=== PATIENT | male | born 1970 | race African-American/Black ===

== ENCOUNTER 2018-02-09 21:31 | Emergency (ER) | payer MEDICAID, OTHER ==
[2018-02-09] MEDS ORDERED: IBUPROFEN 600 MG TABLET PO ONE (23:13)
[2018-02-09] MEDS ORDERED: ACETAMINOPHEN 325 MG TABLET PO ONE (23:13)
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
[2018-02-09] MEDS ORDERED: MORPHINE SULFATE IR 15 MG TABLET PO ONE (23:55)
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
[2018-02-10 00:54] VITALS: BP 100/58
== END 2018-02-10 01:12 | disposition home or self-care (01) ==
LOC: ER 21:31
PROC: 2W3QX1Z Immobilization of Right Lower Leg using Splint (ICD-10-PCS; principal; 2018-02-09)
DX: S82.841A Displaced bimalleolar fracture of right lower leg, initial encounter for closed fracture (principal); M79.671 Pain in right foot; W19.XXXA Unspecified fall, initial encounter
CPT/HCPCS: 99284; 73610; 73630; 29515; J3490 ×2

== ENCOUNTER 2018-02-19 07:58 | Day surgery (SDC) | payer MEDICAID ==
[~2018-02-19 07:58] MED LIST: CEFAZOLIN 2 GM/D5W RTU 2 GM/50 ML RTUPB IV PRN
[2018-02-19 08:44] LABS: HEMATOCRIT 36.8 % (37.9-51.0); HEMOGLOBIN 12.7 g/dL (13.5-17.0); MEAN CORPUSCULAR HEMOGLOBIN 31.1 pg (27.0-33.4); MEAN CORPUSCULAR HGB CONC 34.4 g/dL (32.0-36.0); MEAN CORPUSCULAR VOLUME 90 fl (80-97); PLATELET COUNT 426 10^3/uL (150-450); RED BLOOD COUNT 4.07 10^6/uL (4.35-5.55); RED CELL DISTRIBUTION WIDTH 12.3 % (11.5-14.0); WHITE BLOOD COUNT 13.2 10^3/uL (4.0-10.5)
--- NOTE | 2018-02-19 08:47 | RADIOLOGY REPORT (SQ) ---
EXAM DESCRIPTION: CHEST SINGLE VIEW COMPLETED DATE/TIME: 02/19/2018 8:38 am REASON FOR STUDY: PREOP COMPARISON: 05/01/2015 EXAM PARAMETERS: NUMBER OF VIEWS: One view. TECHNIQUE: Single frontal radiographic view of the chest acquired. RADIATION DOSE: NA LIMITATIONS: None. FINDINGS: LUNGS AND PLEURA: Chronic blunting of the right costophrenic angle. Chronic elevation rig ht diaphragm. No opacities, masses or pneumothorax. No pleural effusion. MEDIASTINUM AND HILAR STRUCTURES: No masses. Contour normal. HEART AND VASCULAR STRUCTURES: Heart normal in size. Normal vasculature. BONES: No acute findings. HARDWARE: None in the chest. OTHER: No other significant finding. IMPRESSION: NO ACUTE RADIOGRAPHIC FINDING IN THE CHEST. TECHNICAL DOCUMENTATION: JOB ID: [id number] [employer]- All Rights Reserved Reading location - IP/workstation name: [email or web address]
[2018-02-19] MEDS ORDERED: CEFAZOLIN 2 GM/D5W RTU 2 GM/50 ML RTUPB IV ONE (09:01)
[2018-02-19 09:05] LABS: ANION GAP 10 (5-19); BLOOD UREA NITROGEN 8 mg/dL (7-20); CALCIUM 9.4 mg/dL (8.4-10.2); CARBON DIOXIDE 27 mmol/L (22-30); CHLORIDE 101 mmol/L (98-107); GLUCOSE 80 mg/dL (75-110); POTASSIUM 3.9 mmol/L (3.6-5.0); SODIUM 137.5 mmol/L (137-145)
[2018-02-19] MEDS ORDERED: SUCCINYLCHOLINE CHLORIDE INJ 200 MG/10 ML VIAL ONE (09:12)
[2018-02-19] MEDS ORDERED: LIDOCAINE 2% INJ-PF (20 MG/ML) 10 ML AMPUL ONE (09:48)
[2018-02-19] MEDS ORDERED: MIDAZOLAM 2 MG/2 ML INJ ONE (09:49)
[2018-02-19] MEDS ORDERED: FENTANYL CITRATE INJ/PF 100 MCG/2 ML AMPUL ONE (09:49)
[2018-02-19] MEDS ORDERED: ONDANSETRON HCL INJ/PF 4 MG/2 ML SDV ONE (09:49)
[2018-02-19] MEDS ORDERED: DEXAMETHASONE SOD PHOSPHATE INJ 4 MG/1 ML VIAL ONE (09:49)
[2018-02-19] MEDS ORDERED: PROPOFOL INJ 200 MG/20 ML VIAL IV ONE (09:49)
[2018-02-19] MEDS ORDERED: ACETAMINOPHEN 1,000 MG/100 ML RTUPB IV ONE (09:50)
[2018-02-19 09:51] LABS: APPEARANCE,URINE CLEAR; BILIRUBIN,URINE NEGATIVE (NEGATIVE); COLOR,URINE YELLOW; GLUCOSE, URINE NEGATIVE (NEGATIVE); KETONES,URINE NEGATIVE (NEGATIVE); LEUKOCYTE ESTERASE,URINE NEGATIVE (NEGATIVE); NITRITE,URINE NEGATIVE (NEGATIVE); PROTEIN,URINE NEGATIVE (NEGATIVE)
[2018-02-19 09:57] LABS: URINE SPECIFIC GRAVITY 1.022
--- NOTE | 2018-02-19 10:03 | EKG REPORT ---
SEVERITY:- OTHERWISE NORMAL ECG - SINUS RHYTHM LOW VOLTAGE IN FRONTAL LEADS : Confirmed by: Cierra Ding MD 19-Feb-2018 10:03:02
[2018-02-19] MEDS ORDERED: ONDANSETRON HCL INJ/PF 4 MG/2 ML SDV IV PRN (11:17)
[2018-02-19] MEDS ORDERED: PROMETHAZINE HCL INJ 25 MG/1 ML VIAL IV PRN ×2 (11:17)
[2018-02-19] MEDS ORDERED: MEPERIDINE HCL/PF INJ 25 MG/1 ML DISP.SYRIN IV PRN (11:17)
[2018-02-19] MEDS ORDERED: FENTANYL CITRATE INJ/PF 100 MCG/2 ML AMPUL IV PRN ×3 (11:17)
[2018-02-19] MEDS ORDERED: MORPHINE SULFATE 10 MG/ML INJ IV PRN (11:17)
[2018-02-19] MEDS ORDERED: DIPHENHYDRAMINE HCL 50 MG/ML VIAL IV PRN (11:17)
--- NOTE | 2018-02-19 11:42 | Operative Report ---
Operative Report DATE OF SURGERY: 02/19/18 PREOPERATIVE DIAGNOSIS: Malunion right bimalleolar ankle fracture OPERATION: Takedown of malunion and open reduction internal fixation of fracture SURGEON: TWAN ROBERTO ANESTHESIA: GA ESTIMATED BLOOD LOSS: 25 PROCEDURE: With the patient supine on the operating table the right lower extremities prepped and draped in a sterile fashion. The limb is elevated for exsanguination and the tourniquet inflated 280 torr. Longitudinal incisions made over the distal fibula and sharp dissection was carried incision down to the fracture. The fracture callus was debrided sharply using a 15 blade. The fracture then was then mobilized using a periosteal elevator and an osteotome. The reduction was performed under direct visualization. A Shayla titanium distal fibula plate was then S applied with 3 screws proximally and 3 screws distally. Attention was now turned to the medial malleolus. A longitudinal incision was made over the medial malleolus and sharp dissection was carried incision through the periosteum and the fracture callus. The fracture callus was debrided sharply. The fracture was mobilized and reduced under direct visualization. Secured with 2 4.0 mm cannulated screws. The tourniquet is deflated. The wound irrigated with bulb lavage. Hemostasis obtained with electrocautery. The wound is then closed in layers interrupted Vicryl followed by nylon. A sterile compressive dressing posterior plaster splint were applied and the patient's return to PACU in satisfactory condition.
[2018-02-19] MEDS: FENTANYL CITRATE INJ/PF 100 MCG/2 ML AMPUL ONE ×2 (12:15→12:20)
[2018-02-19] MEDS ORDERED: MORPHINE SULFATE 10 MG/ML INJ ONE (12:21)
[2018-02-19] MEDS: LORAZEPAM INJ 2 MG/1 ML VIAL ONE ×3 (12:24→12:30)
[2018-02-19] MEDS ORDERED: KETOROLAC TROMETHAMINE INJ/PF 30 MG/1 ML SDV ONE (13:43)
[2018-02-19] MEDS ORDERED: HYDROCODONE/ACETAMINOPHEN 5-325 MG TABLET PO PRN ×2 (13:56→13:57)
[2018-02-19] MEDS ORDERED: HYDROCODONE/ACETAMINOPHEN 5-325 MG TABLET ONE ×2 (14:07→14:08)
--- NOTE | 2018-02-19 15:19 | RADIOLOGY REPORT (SQ) ---
EXAM DESCRIPTION: NO CHG FLUORO; ANKLE RIGHT AP/LATERAL COMPLETED DATE/TIME: 02/19/2018 3:09 pm REASON FOR STUDY: ORIF RT ANKLE ASST WITH FLUORO IN OR COMPARISON: 02/09/2018 FLUOROSCOPY TIME: 0.2 minutes Images saved to PACS LIMITATIONS: None. PROCEDURE: ORIF right ankle fractures. FINDINGS: Images obtained from fluoro document placement of a compression plate on the distal fibula and 2 long cannulated screws through the medial malleolus. IMPRESSION: ORIF right ankle fractures. Refer to operative note for further information. COMMENT: PQRS 6045F: Fluoroscopy time of the procedure is documented in the report. TECHNICAL DOCUMENTATION: JOB ID: [id number] [employer]- All Rights Reserved Reading location - IP/workstation name: [email or web address]
--- NOTE | 2018-02-19 15:19 | RADIOLOGY REPORT (SQ) ---
EXAM DESCRIPTION: NO CHG FLUORO; ANKLE RIGHT AP/LATERAL COMPLETED DATE/TIME: 02/19/2018 3:09 pm REASON FOR STUDY: ORIF RT ANKLE ASST WITH FLUORO IN OR COMPARISON: 02/09/2018 FLUOROSCOPY TIME: 0.2 minutes Images saved to PACS LIMITATIONS: None. PROCEDURE: ORIF right ankle fractures. FINDINGS: Images obtained from fluoro document placement of a compression plate on the distal fibula and 2 long cannulated screws through the medial malleolus. IMPRESSION: ORIF right ankle fractures. Refer to operative note for further information. COMMENT: PQRS 6045F: Fluoroscopy time of the procedure is documented in the report. TECHNICAL DOCUMENTATION: JOB ID: [id number] [employer]- All Rights Reserved Reading location - IP/workstation name: [email or web address]
[2018-02-19] MEDS: HYDROCODONE/ACETAMINOPHEN 5-325 MG TABLET PO PRN (23:12)
[2018-02-19 23:56] VITALS: BP 113/64
[2018-02-20] MEDS: HYDROCODONE/ACETAMINOPHEN 5-325 MG TABLET PO PRN (05:11)
== END 2018-02-20 09:47 | disposition home or self-care (01) ==
LOC: OROUT 07:58 → 4N 18:44 → OROUT 02-20 09:47
PROVIDERS: ATTEND Orthopaedic Surgery
DX: S82.841A Displaced bimalleolar fracture of right lower leg, initial encounter for closed fracture (principal); X58.XXXA Exposure to other specified factors, initial encounter; M25.571 Pain in right ankle and joints of right foot; F17.210 Nicotine dependence, cigarettes, uncomplicated; J45.909 Unspecified asthma, uncomplicated; G89.4 Chronic pain syndrome; Z79.899 Other long term (current) drug therapy; Z86.73 Personal history of transient ischemic attack (TIA), and cerebral infarction without residual deficits; Z88.5 Allergy status to narcotic agent; Z01.818 Encounter for other preprocedural examination
CPT/HCPCS: 36415; 85027; 80048; 81001; 73600; 71045; 93005; 93010; 27814; C1713 ×6; C1769; J2250; J1100; J3010; J1885; J2270; J2060; J0330; J2405; J2704; J3490; J0690; J0131; 01480

== ENCOUNTER → 2018-03-05 | Outpatient (CLI) | payer MEDICAID ==
--- NOTE | 2018-03-05 13:21 | RADIOLOGY REPORT (SQ) ---
EXAM DESCRIPTION: CERV SP 3 VIEW OR LESS COMPLETED DATE/TIME: 03/05/2018 9:55 am REASON FOR STUDY: CERVICALGIA M54.2 CERVICALGIA COMPARISON: None. NUMBER OF VIEWS: Three views. TECHNIQUE: AP, lateral and odontoid radiographic images acquired of the cervical spine. LIMITATIONS: None. FINDINGS: MINERALIZATION: Normal. ALIGNMENT: Anatomic. VERTEBRAE: Vertebral bodies of normal height. Mild degenerative changes involving some of the facet joints. DISCS: Mild disc space loss at C5-6 and C6-7 with moderate-sized osteophytes. Remaining disc spaces well maintained. HARDWARE: None in the spine. SOFT TISSUES: No masses or calcifications. Lung apices clear. OTHER: No other significant finding. IMPRESSION: Mild to moderate degenerative changes involving the cervical spine. TECHNICAL DOCUMENTATION: JOB ID: [id number] [employer]- All Rights Reserved Reading location - IP/workstation name: [email or web address]
== END ==
LOC: RAD 09:30
PROVIDERS: ATTEND Physician Assistant
DX: M54.2 Cervicalgia (principal); M50.323 Other cervical disc degeneration at C6-C7 level
CPT/HCPCS: 72040

== ENCOUNTER 2018-10-14 08:11 | Emergency (ER) | payer MEDICAID ==
[2018-10-14 08:27] VITALS: BP 120/81
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
== END 2018-10-14 09:27 | disposition home or self-care (01) ==
LOC: ER 08:11
DX: G89.29 Other chronic pain (principal); R51 Headache; M54.9 Dorsalgia, unspecified; M79.671 Pain in right foot; M79.672 Pain in left foot; J45.909 Unspecified asthma, uncomplicated; Z98.890 Other specified postprocedural states
CPT/HCPCS: 99283

== ENCOUNTER 2018-11-09 10:05 | Emergency (ER) | payer MEDICAID ==
[2018-11-09 10:10] VITALS: BP 118/77
[2018-11-09] MEDS ORDERED: PENICILLIN V POTASSIUM 500 MG TABLET PO ONE (10:40)
[2018-11-09] MEDS ORDERED: LIDOCAINE 2% VISCOUS SOLN 20 ML UDCUP PO ONE (10:42)
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
== END 2018-11-09 12:04 | disposition home or self-care (01) ==
LOC: ER 10:05
DX: K02.9 Dental caries, unspecified (principal); S82.841P Displaced bimalleolar fracture of right lower leg, subsequent encounter for closed fracture with malunion; X58.XXXD Exposure to other specified factors, subsequent encounter; F17.210 Nicotine dependence, cigarettes, uncomplicated; Z86.73 Personal history of transient ischemic attack (TIA), and cerebral infarction without residual deficits
CPT/HCPCS: 99406; 99283; 73610; J3490 ×2

== ENCOUNTER 2019-07-26 12:19 | Emergency (ER) | payer MEDICAID ==
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
[2019-07-26 14:32] VITALS: BP 117/67
== END 2019-07-26 14:37 | disposition home or self-care (01) ==
LOC: ER 12:19
DX: S00.03XA Contusion of scalp, initial encounter (principal); R07.81 Pleurodynia; Y08.09XA Assault by strike by other specified type of sport equipment, initial encounter; F17.200 Nicotine dependence, unspecified, uncomplicated; J45.909 Unspecified asthma, uncomplicated
CPT/HCPCS: 70450; 71046; 99284

== ENCOUNTER 2019-07-29 10:21 | Emergency (ER) | payer MEDICAID ==
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
[2019-07-29 11:44] VITALS: BP 119/78
== END 2019-07-29 11:40 | disposition home or self-care (01) ==
LOC: ER 10:21
DX: S22.31XA Fracture of one rib, right side, initial encounter for closed fracture (principal); Y04.2XXA Assault by strike against or bumped into by another person, initial encounter; F17.210 Nicotine dependence, cigarettes, uncomplicated; J45.909 Unspecified asthma, uncomplicated
CPT/HCPCS: 99283

== ENCOUNTER 2019-08-03 15:08 | Emergency (ER) | payer MEDICAID ==
[2019-08-03 15:13] VITALS: BP 128/72
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
== END 2019-08-03 15:42 | disposition home or self-care (01) ==
LOC: ER 15:08
DX: S22.31XA Fracture of one rib, right side, initial encounter for closed fracture (principal); Y09 Assault by unspecified means; S00.33XA Contusion of nose, initial encounter; Y04.2XXA Assault by strike against or bumped into by another person, initial encounter; F17.210 Nicotine dependence, cigarettes, uncomplicated; J45.909 Unspecified asthma, uncomplicated
CPT/HCPCS: 99283

== ENCOUNTER 2019-08-03 19:14 | Emergency (ER) | payer MEDICAID ==
[2019-08-03 19:21] VITALS: BP 140/83
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
== END 2019-08-03 19:33 | disposition left against medical advice (07) ==
LOC: ER 19:14
DX: R07.81 Pleurodynia (principal); J45.909 Unspecified asthma, uncomplicated; Z53.29 Procedure and treatment not carried out because of patient's decision for other reasons
CPT/HCPCS: 99283

== ENCOUNTER 2019-08-20 08:59 | Emergency (ER) | payer MEDICAID ==
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
== END 2019-08-20 11:34 | disposition home or self-care (01) ==
LOC: ER 08:59
DX: S22.41XA Multiple fractures of ribs, right side, initial encounter for closed fracture (principal); Y09 Assault by unspecified means; J90 Pleural effusion, not elsewhere classified; F17.200 Nicotine dependence, unspecified, uncomplicated; J45.909 Unspecified asthma, uncomplicated
CPT/HCPCS: 99283

== ENCOUNTER 2019-09-04 11:27 | Emergency (ER) | payer MEDICAID ==
[2019-09-04 11:32] VITALS: BP 104/64
[2019-09-04] MEDS ORDERED: IBUPROFEN 800 MG TABLET PO ONE (11:50)
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
[2019-09-04] MEDS ORDERED: HYDROCODONE/ACETAMINOPHEN 5-325 MG TABLET PO ONE (13:22)
== END 2019-09-04 13:39 | disposition home or self-care (01) ==
LOC: ER 11:27
DX: S22.41XA Multiple fractures of ribs, right side, initial encounter for closed fracture (principal); Y09 Assault by unspecified means; J90 Pleural effusion, not elsewhere classified; F14.10 Cocaine abuse, uncomplicated; F17.210 Nicotine dependence, cigarettes, uncomplicated; Z71.6 Tobacco abuse counseling; J45.909 Unspecified asthma, uncomplicated
CPT/HCPCS: 99283; 71101; J3490